=== PATIENT | male | born 1995 | race Asian ===

== ENCOUNTER → 2017-10-06 | Outpatient (CLI) | payer BC ==
[2017-10-06 13:16] LABS: BASO % 0.8 %; BASO ABS # 0.04 K/uL (0-0.2); EOS % 5.1 %; EOS ABS # 0.26 K/uL (0-0.5); HEMATOCRIT 44.4 % (42-52); HEMOGLOBIN 15.2 g/dL (14.0-18.0); IG# 0.01 K/uL (0.00-0.02); LYMPH % 30.3 %; LYMPH ABS # 1.55 K/uL (1.2-3.4); MEAN CELL VOLUME 91.4 fL (80-100); MEAN CORPUSCULAR HEMOGLOBIN 31.3 pg (25-34); MEAN CORPUSCULAR HGB CONC 34.2 g/dl (32-36); MEAN PLATELET VOLUME 9.5 fL (7.4-10.4); MONO ABS # 0.41 K/uL (0.11-0.59); NEUT % 55.6 %; NEUT ABS # 2.85 K/uL (1.4-6.5); PLATELET COUNT 280 K/uL (130-400); RED CELL DISTRIBUTION WIDTH CV 12.2 % (11.5-14.5); RED CELL DISTRIBUTION WIDTH SD 40.9 fL (36.4-46.3); WHITE BLOOD COUNT 5.12 K/uL (4.8-10.8)
[2017-10-06 13:49] LABS: ALBUMIN 3.9 gm/dl (3.4-5.0); ALT/SGPT 22 U/L (12-78); AST/SGOT 16 U/L (15-37); BLOOD UREA NITROGEN 13 mg/dl (7-18); CARBON DIOXIDE 27 mmol/L (21-32); CHOLESTEROL 161 mg/dl (0-200); CREATININE 1.01 mg/dl (0.60-1.40); GLUCOSE 81 mg/dl (70-99); POTASSIUM 3.8 mmol/L (3.5-5.1); SODIUM 136 mmol/L (136-145)
[2017-10-06 13:57] LABS: ALKALINE PHOSPHATASE 50 U/L (45-117); LDL CHOLESTEROL CALCULATED 67 mg/dl
== END | disposition home or self-care (01) ==
LOC: C.LAB1850 11:55
PROVIDERS: ATTEND Physician Assistant
DX: R20.0 Anesthesia of skin (principal); R20.2 Paresthesia of skin

== ENCOUNTER 2018-02-06 17:42 | Emergency (ER) | payer BC ==
[~2018-02-06] VITALS: Ht 162.6 cm; Wt 50.6 kg
[2018-02-06 17:47] VITALS: TEMP 36.8; Ht 162.6 cm; Wt 50.6 kg
[2018-02-06] MEDS ORDERED: AMOX500C3 PO (18:07)
--- NOTE | 2018-02-06 19:32 | EMERGENCY ROOM VISIT NOTE ---
History First contact with patient: 17:50 Chief Complaint: DENTAL PAIN Stated Complaint: BLEEDING FROM WHERE WISDOM TOOTH EXTRACTED Nursing Triage Summary: pt states he recently had his wisdom teeth removed. bleeding last night and this am. History of Present Illness The patient is a 22 year old male who presents to the Emergency Room via private vehicle with complaints of "bleeding from her wisdom tooth extracted". The patient states that this past Wednesday, 6 days ago he had the right posterior inferior molar/wisdom tooth removed. He notes that this was in [facility] by Dr. Velazquez. He states that this went well, and he has been experiencing intermittent bleeding. He states that yesterday he had some bleeding and then went to bed and notes that it continued to bleed today therefore he was seen at [facility]. They recommended he come here for evaluation. He denies any dizziness or lightheadedness. He feels as though he is swallowed some blood and is a little nauseous. Review of Systems A complete 6-point Review of Systems was discussed with the patient, with pertinent positives and negatives listed in the History of Present Illness. All remaining Review of Systems questions can be considered negative unless otherwise specified. Past Medical/Surgical History Recent wisdom tooth extraction Family History No pertinent. Social History Smoking Status: Current Some Day Smoker Patient is a [employer]. Current/Historical Medications Scheduled Amoxicillin (Amoxil), Unknown Dose PO QID Physical Exam Vital Signs Date Time Temp Pulse Resp B/P (MAP) Pulse Ox O2 Delivery O2 Flow Rate FiO2 02/06/18 19:48 80 18 114/73 93 02/06/18 17:47 36.8 60 20 125/75 99 Room Air Physical Exam VITAL SIGNS - Vital signs and nursing notes were reviewed. Stable. Afebrile. GENERAL -22-year-old male appearing his stated age who is in no acute distress. Communicates well with provider and answers questions appropriately. SKIN - Without rashes. No meningeal or petechial rash. HEAD - NC/AT. EYES - PERRL with EOMI bilaterally. Sclera anicteric. EARS - No deformities of external structures noted on gross examination bilaterally. NOSE - Midline and without cyanosis. No epistaxis or purulent drainage noted. MOUTH/OROPHARYNX - Without perioral cyanosis. Buccal mucosa pink and moist and without leukoplakia. Tongue midline with equal elevation of palate bilaterally. No tonsillar hypertrophy, erythema, or exudates noted. Fair dentition noted. At the posterior inferior region where the molar/wisdom tooth was extracted there is a scant amount of bleeding. No open socket noted. No evidence of trauma. Medical Decision & Procedures Medical Decision Patient was seen and evaluated as above in room D5. Review was performed of nursing notes and vital signs. After obtaining a thorough history and physical examination the above work up was performed. He presents to us today with a minimal amount of bleeding from the socket where the tooth was removed. I had him rinse several times with cold water. This made the bleeding nearly stopped. I then placed a T bag in the region. He is reevaluated that I change this to gauze. He was reevaluated and there was no bleeding. I had him rinse several times and there was no bleeding at all. He was observed here for nearly 2 hours without any hemorrhaging or concerning amount of blood loss and I believe he is stable for outpatient management. He is to notify the dentist who performed the procedure upon today's visit and request follow-up if warranted. The patient was educated upon management, educated upon todays findings/results, educated upon symptoms in which to return, had questions answered prior to discharge, and was discharged home in good condition. In the evaluation and treatment of this patient the following differential diagnoses were entertained: Postoperative bleeding, hemorrhage, hematoma, among others. Impression Primary Impression: Postoperative bleeding from mouth Departure Information Dispostion Home / Self-Care Condition GOOD Referrals No Doctor, Assigned (PCP) Patient Instructions My [facility] Additional Instructions You were seen in the emergency department for bleeding from the right posterior inferior molar region which was removed this past Wednesday as we discussed. Through utilizing cold water compresses we have had the bleeding under control here. Please follow-up with the oral surgeon who performed the surgery/speak with them regarding the bleeding. Please return with any new/concerning symptoms.
[2018-02-06 19:48] VITALS: BP 114/73; PULSE 80; O2SAT 93
== END 2018-02-06 19:50 | disposition home or self-care (01) ==
LOC: C.EDB 17:46 → C.EDD 19:50
DX: M96.831 Postprocedural hemorrhage of a musculoskeletal structure following other procedure (principal); Y83.8 Other surgical procedures as the cause of abnormal reaction of the patient, or of later complication, without mention of misadventure at the time of the procedure; F17.210 Nicotine dependence, cigarettes, uncomplicated